=== PATIENT | female | born 1995 | race African-American/Black ===

== ENCOUNTER 2021-12-29 08:55 | Outpatient (CLI) | payer OTHER, SELFPAY ==
[2021-12-29 09:24] VITALS: TEMP 36.8
[2021-12-29 09:25] VITALS: BP 114/58; PULSE 83
[2021-12-29 10:15] VITALS: BMI 36.2
--- NOTE | 2021-12-29 11:38 | OB.TRI.NOTE ---
HPI - General General Date of Admission: 12/29/21 Date of Service: 12/29/21 Chief Complaint: DFM HPI Narrative ELÍAS VILLAFUERTE, is a 26 F who presents with DFM. No ctx, vb, lof. She offers no other complaints today. PFSH PFSH Home Medications aspirin 81 mg chewable tablet 81 mg PO DAILY pregnNCY 12/29/21 [History Last Taken 12/29/21 06:00] Allergy/AdvReac Type Severity Reaction Status Date / Time Penicillins Allergy Rash Verified 12/29/21 10:13 NST FHR Rate Baby A Baseline: 150 Variability:: Moderate Accelerations:: 15 x 15 Decelerations:: None NST Reactive:: Yes Assessment & Plan (1) 33 weeks gestation of : PLAN: NST reactive today She is now feeling FM Counseled regarding FKC's and reasons to call or return to L&D for evaluation Has follow up in the office in a few days
== END 2021-12-29 10:45 | disposition home or self-care (01) ==
LOC: WPOUT 09:14 → WP 09:15
PROVIDERS: Visit Provider Obstetrics & Gynecology
DX: O36.8130 Decreased fetal movements, third trimester, not applicable or unspecified (principal); Z79.82 Long term (current) use of aspirin; Z3A.33 33 weeks gestation of pregnancy
CPT/HCPCS: 59025; 59050; 99218; G0378

== ENCOUNTER 2022-02-06 17:35 | Outpatient (CLI) | payer OTHER, SELFPAY ==
[2022-02-06] VITALS (9 sets, daily range): BP systolic 111–124; BP diastolic 66–84; PULSE 60–79; TEMP 36.9; BMI 38.5
[2022-02-06 18:30] LABS: Hematocrit 38.1 % (37-47); Hemoglobin 12.2 g/dL (12.0-15.0); Mean Corpuscular Hgb 26.2 pg (27.0-32.0); Mean Corpuscular Volume 81.8 fL (81-99); Mean Platelet Vol. 11.4 fl (6.2-12.0); Platelet Count 150 K/mm3 (150-450); RBC Distribution Width CV 16.4 % (11.6-14.6); RBC Distribution Width SD 48.4 fl (35.1-43.9); Red Blood Count 4.66 M/mm3 (4.2-5.4); White Blood Count 7.1 K/mm3 (4.4-11.0)
[2022-02-06 18:36] LABS: Protein, Urine (Random) < 6.0 mg/dL (<11.9); Protein:Creat Ratio 211 mg/g CRE (0-200)
[2022-02-06 19:35] LABS: AST(SGOT) 17 U/L (15-37); Alanine Aminotransfer ALT/SGPT 18 U/L (13-56); Creatinine, Serum 0.59 mg/dL (0.55-1.02); EST Glomerular Filtration Rate 132 mL/min (>60); Est Glom Filt Rate - Afr Amer 160 mL/min (>60); Uric Acid 4.5 mg/dL (2.6-6.0)
--- NOTE | 2022-02-07 07:46 | OB.TRI.NOTE ---
HPI - General General Date of Admission: 02/06/22 Date of Service: 02/06/22 HPI Narrative ELÍAS VILLAFUERTE, is a 26 F who presents r/o PRE E PFSH PFSH Home Medications aspirin 81 mg chewable tablet 81 mg PO DAILY pregnNCY 12/29/21 [History Last Taken 12/29/21 06:00] vitamins no.144-folic acid 400 mcg chewable tablet () tab PO 02/06/22 [History Last Taken Unknown] Allergy/AdvReac Type Severity Reaction Status Date / Time Penicillins Allergy Rash Verified 02/06/22 19:41 NST FHR Rate Baby A Baseline: 150 Variability:: Moderate Accelerations:: 15 x 15 Decelerations:: None NST Reactive:: Yes FHR Category:: Category I Uterine Activity:: irregular Assessment & Plan (1) Headache in : PLAN: Plan @ 39.1 weeks- r/o PRE E, well being established 1) PRE E labs wnl 2) BPs normal 3) NST reactive cat 1- dc home
== END 2022-02-06 20:03 | disposition home or self-care (01) ==
LOC: WPOUT 17:40 → WP 17:41
PROVIDERS: Referring Provider Obstetrics & Gynecology; Visit Provider Obstetrics & Gynecology
DX: O26.893 Other specified pregnancy related conditions, third trimester (principal); R51.9 Headache, unspecified; Z3A.39 39 weeks gestation of pregnancy; Z79.82 Long term (current) use of aspirin
CPT/HCPCS: 59025; 59050; 82565; 82570; 84156; 84450; 84460; 84550; 85027; 99218; G0378

== ENCOUNTER 2022-02-11 07:30 | Outpatient (CLI) | payer OTHER, SELFPAY ==
[2022-02-11 07:48] VITALS: BP 131/87; PULSE 89; TEMP 36.5; O2SAT 98
[2022-02-11 07:51] VITALS: BMI 38.4
[2022-02-11 08:38] LABS: ROM Internal Control Test YES-OK TO RESULT pt. (Internal QC); ROM Patient Test Negative (Negative)
--- NOTE | 2022-02-26 06:51 | OB.TRI.HP_ITS ---
HPI - General HPI Narrative ELÍAS VILLAFUERTE, is a 26 F who presents to rule out labor. C/O contractions. Denies any loss of fluid or vaginal bleeding. Positive movement Maternal Data Information ASHA Calculator Estimated Delivery Date Method Current WG Current Estimate 02/12/22 Manual 42w 0d PFSH PFSH Medical History (Updated 02/26/22 @ 06:57 by Ruchi Negron CNM) Laceration, obstetrical, second degree No leakage of amniotic fluid into vagina Home Medications vitamins no.144-folic acid 400 mcg chewable tablet () 1 tab PO DAILY 02/06/22 [History Last Taken 02/13/22] ibuprofen 600 mg tablet 600 mg PO Q6H PRN Pain 20 days #60 TABLETS 02/15/22 [Rx Last Taken Unknown] Allergy/AdvReac Type Severity Reaction Status Date / Time Penicillins Allergy Rash Verified 02/13/22 00:06 Surgical History History of tonsillectomy [place] teeth extracted Social History Smoking Status: Never smoker History Elective abortions Hx Para 0 Spontaneous abortions Hx # Term Pregnancies Ectopic pregnancies Hx # Pregnancies Multiple births # of living children ROS Eyes Eyes: Denies blurry vision Cardiovascular Cardiovascular: Reports none; Denies chest pain at rest, chest pain with activity or dizziness Respiratory/Chest Respiratory/Chest: Denies cough or dyspnea Gastrointestinal Gastrointestinal: Reports none and other; Denies diarrhea or vomiting Genitourinary Genitourinary: Denies dysuria Musculoskeletal Musculoskeletal: Reports none Integumentary Integumentary: Reports none; Denies rash Neurologic Neurologic: Denies dizziness, headache(s) or other visual disturbances Psychiatric Psychiatric: Reports none Assessment & Plan (1) 39 weeks gestation of : (2) Uterine contractions: PLAN: Plan CE- no change Cat. 1 tracing, NST reactive D/C home with follow up in office
--- NOTE | 2022-03-05 07:38 | OB.TRI.PN ---
Progress Notes Progress Note: at 39w6d with complaints of leakage of fluid. No vaginal bleeding and good movement. No contractions. NST reactive Laboratory Studies: Laboratory Tests 02/11/22 Range/Units 08:03 Vag Amniotic Fld Detect Negative (Negative) Assessment & Plan (1) Vaginal discharge: PLAN: Plan 1) Reactive NST 2) ROM plus negative 3) No signs of labor, D/C home 4) Labor precautions reviewed
== END 2022-02-11 10:20 | disposition home or self-care (01) ==
LOC: WPOUT 07:33 → WP 07:34
PROVIDERS: Referring Provider Advanced Practice Midwife; Visit Provider Advanced Practice Midwife
DX: O26.893 Other specified pregnancy related conditions, third trimester (principal); N89.8 Other specified noninflammatory disorders of vagina; Z3A.39 39 weeks gestation of pregnancy
CPT/HCPCS: 59025; 59050; 84112; 99218; G0378

== ENCOUNTER 2022-02-13 00:29 | Inpatient (IN) | payer OTHER, SELFPAY ==
[2022-02-12 23:44] VITALS: BP 139/82; PULSE 80
[2022-02-12 23:58] VITALS: BMI 38.7
[2022-02-13] VITALS (99 sets, daily range): BP systolic 108–152; BP diastolic 57–95; PULSE 8–171; TEMP 35.9–38.3; O2SAT 78–100
[2022-02-13 05:11] LABS: Absolute Lymphocyte Count 0.86 X10^3/uL (0.83-4.51); Absolute Neutrophil Count 11.1 X10^3/uL (2.0-7.7); Basophil# 0.02 X10^3/uL; Basophil% 0.2 % (0-1); Hematocrit 40.8 % (37-47); Hemoglobin 12.9 g/dL (12.0-15.0); Lymphocyte # 0.86 X10^3/ul (0.83-4.51); Mean Corp Hgb Conc 31.6 g/dL (32-36); Mean Corpuscular Hgb 26.3 pg (27.0-32.0); Mean Corpuscular Volume 83.3 fL (81-99); Mean Platelet Vol. 11.8 fl (6.2-12.0); Monocyte# 0.32 X10^3/uL; Monocyte% 2.6 % (0-10); NRBC Flagged by Analyzer 0 % (0-5); Neutrophil % 89.6 % (47-70); Platelet Count 139 K/mm3 (150-450); RBC Distribution Width CV 16.6 % (11.6-14.6); RBC Distribution Width SD 49.8 fl (35.1-43.9); White Blood Count 12.4 K/mm3 (4.4-11.0)
[2022-02-13] MEDS: Cefazolin 2 GM in 0.9% Normal Saline 100 ML IV (05:23)
[2022-02-13] MEDS: LACTATED RINGERS 500 ML 999 ML IV ×2 (05:26→16:34)
[2022-02-13] MEDS: Lactated Ringers 1,000 ML 200 ML IV ×3 (06:25→16:51)
[2022-02-13] MEDS: fentaNYL-bupivacaine (epidural) 100 ML BAG EPIDURAL ×3 (07:15→16:03)
--- NOTE | 2022-02-13 08:01 | PCM.HP.OB ---
HPI - General General Date of Admission: 02/13/22 Date of Service: 02/13/22 Chief Complaint: labor HPI Narrative ELÍAS VILLAFUERTE, is a 26 F at 40w1d who presents in labor. Ctx's and 3 cm dilated. No vb, lof. Good FM. Maternal Data Information Final ASHA: 02/12/22 Final ASHA Source: LMP PFSH PFSH Home Medications aspirin 81 mg chewable tablet 81 mg PO DAILY pregnNCY 12/29/21 [History Last Taken 02/10/22 07:00] vitamins no.144-folic acid 400 mcg chewable tablet () 1 tab PO DAILY 02/06/22 [History Last Taken 02/13/22] Allergy/AdvReac Type Severity Reaction Status Date / Time Penicillins Allergy Rash Verified 02/13/22 00:06 Surgical History History of tonsillectomy [place] teeth extracted Social History Smoking Status: Never smoker History Elective abortions Hx Para 0 Spontaneous abortions Hx # Term Pregnancies Ectopic pregnancies Hx # Pregnancies Multiple births # of living children NST FHR Rate Baby A FHR Category:: Category I Vital Signs Vital Signs Vital Signs: 02/12/22 23:44 02/12/22 23:44 02/13/22 00:04 Temperature Temperature Source Pulse Rate 80 Blood Pressure 139/82 H 127/68 H BP Systolic 139 127 BP Diastolic 82 68 Pulse Ox 02/13/22 00:04 02/13/22 00:20 02/13/22 00:20 Temperature Temperature Source Pulse Rate 69 66 Blood Pressure 128/76 H BP Systolic 128 BP Diastolic 76 Pulse Ox 02/13/22 04:08 02/13/22 04:08 02/13/22 04:12 Temperature Temperature Source Pulse Rate 90 Blood Pressure 131/83 H BP Systolic 131 BP Diastolic 83 Pulse Ox 98 02/13/22 04:12 02/13/22 04:10 02/13/22 04:10 Temperature Temperature Source Temporal Pulse Rate 87 Blood Pressure 131/83 H BP Systolic 131 BP Diastolic 83 Pulse Ox 02/13/22 04:10 02/13/22 04:10 02/13/22 06:10 Temperature 96.6 F L Temperature Source Pulse Rate 98 Blood Pressure BP Systolic BP Diastolic Pulse Ox 98 02/13/22 06:10 02/13/22 06:15 02/13/22 06:15 Temperature Temperature Source Pulse Rate 85 Blood Pressure BP Systolic BP Diastolic Pulse Ox 99 99 02/13/22 06:20 02/13/22 06:20 02/13/22 06:26 Temperature Temperature Source Pulse Rate 104 H 92 Blood Pressure BP Systolic BP Diastolic Pulse Ox 99 02/13/22 06:26 02/13/22 06:28 02/13/22 06:28 Temperature Temperature Source Pulse Rate 98 Blood Pressure 143/95 H BP Systolic 143 BP Diastolic 95 Pulse Ox 93 02/13/22 06:30 02/13/22 06:30 02/13/22 06:33 Temperature Temperature Source Pulse Rate 92 Blood Pressure 130/74 H BP Systolic 130 BP Diastolic 74 Pulse Ox 99 02/13/22 06:33 02/13/22 06:35 02/13/22 06:35 Temperature Temperature Source Pulse Rate 94 76 Blood Pressure BP Systolic BP Diastolic Pulse Ox 99 02/13/22 06:38 02/13/22 06:38 02/13/22 06:40 Temperature Temperature Source Pulse Rate 96 89 Blood Pressure 143/79 H BP Systolic 143 BP Diastolic 79 Pulse Ox 02/13/22 06:40 02/13/22 06:44 02/13/22 06:44 Temperature Temperature Source Pulse Rate 67 Blood Pressure 123/60 H BP Systolic 123 BP Diastolic 60 Pulse Ox 98 02/13/22 06:45 02/13/22 06:45 02/13/22 06:49 Temperature Temperature Source Pulse Rate 89 Blood Pressure 123/61 H BP Systolic 123 BP Diastolic 61 Pulse Ox 100 02/13/22 06:49 02/13/22 06:50 02/13/22 06:50 Temperature Temperature Source Pulse Rate 83 99 Blood Pressure BP Systolic BP Diastolic Pulse Ox 100 02/13/22 06:54 02/13/22 06:54 02/13/22 06:55 Temperature Temperature Source Pulse Rate 87 89 Blood Pressure 126/72 H BP Systolic 126 BP Diastolic 72 Pulse Ox 02/13/22 06:55 02/13/22 06:58 02/13/22 06:58 Temperature Temperature Source Pulse Rate 122 H Blood Pressure 117/59 L BP Systolic 117 BP Diastolic 59 Pulse Ox 100 02/13/22 07:00 02/13/22 07:00 02/13/22 07:04 Temperature Temperature Source Pulse Rate 99 Blood Pressure 131/71 H BP Systolic 131 BP Diastolic 71 Pulse Ox 100 02/13/22 07:04 02/13/22 07:05 02/13/22 07:05 Temperature Temperature Source Pulse Rate 95 84 Blood Pressure BP Systolic BP Diastolic Pulse Ox 100 02/13/22 07:08 02/13/22 07:08 02/13/22 07:10 Temperature Temperature Source Pulse Rate 77 84 Blood Pressure 130/68 H BP Systolic 130 BP Diastolic 68 Pulse Ox 02/13/22 07:10 02/13/22 07:13 02/13/22 07:13 Temperature Temperature Source Pulse Rate 70 Blood Pressure 129/71 H BP Systolic 129 BP Diastolic 71 Pulse Ox 100 02/13/22 07:15 02/13/22 07:15 02/13/22 07:17 Temperature Temperature Source Pulse Rate 79 Blood Pressure 128/65 H BP Systolic 128 BP Diastolic 65 Pulse Ox 100 02/13/22 07:17 02/13/22 07:20 02/13/22 07:20 Temperature Temperature Source Pulse Rate 66 89 Blood Pressure BP Systolic BP Diastolic Pulse Ox 100 02/13/22 07:26 02/13/22 07:26 02/13/22 07:22 Temperature Temperature Source Temporal Pulse Rate 85 Blood Pressure BP Systolic BP Diastolic Pulse Ox 100 02/13/22 07:22 02/13/22 07:31 02/13/22 07:31 Temperature 97.7 F L Temperature Source Pulse Rate 68 Blood Pressure BP Systolic BP Diastolic Pulse Ox 100 02/13/22 07:36 02/13/22 07:36 02/13/22 07:40 Temperature Temperature Source Pulse Rate 78 Blood Pressure 108/63 BP Systolic 108 BP Diastolic 63 Pulse Ox 99 02/13/22 07:40 02/13/22 07:41 02/13/22 07:41 Temperature Temperature Source Pulse Rate 67 69 Blood Pressure BP Systolic BP Diastolic Pulse Ox 99 02/13/22 07:46 02/13/22 07:46 02/13/22 07:51 Temperature Temperature Source Pulse Rate 73 73 Blood Pressure BP Systolic BP Diastolic Pulse Ox 99 02/13/22 07:51 02/13/22 07:56 02/13/22 07:56 Temperature Temperature Source Pulse Rate 71 Blood Pressure BP Systolic BP Diastolic Pulse Ox 99 98 02/13/22 08:00 02/13/22 08:00 Temperature Temperature Source Pulse Rate 75 Blood Pressure 109/59 L BP Systolic 109 BP Diastolic 59 Pulse Ox Weight Weight: 233 lb Body Mass Index (BMI) 38.7 Physical Exam Const alert and no apparent distress General Appearance: comfortable Labs Labs Labs: Blood Type A POSITIVE Antibody Screen NEGATIVE Hct 40.8 % (37-47) Hgb 12.9 g/dL (12.0-15.0) Assessment & Plan (1) 40 weeks gestation of : PLAN: Admitted for labor by Dr. Paulie Rodriguez overnight. Epidural for pain control. Ancef for GBS positive. Had growth US last week - expected EFW < 4500 g and pelvis adequate. Cvx 4/90/-2, head well applied and AROM performed for moderate amount of light meconium stained fluid. Routine intrapartum care. Anticipate vaginal delivery. (2) Obesity affecting : (3) Positive GBS test:
[2022-02-13] MEDS: Oxytocin 30 units/NS 500 ml 30 UNITS/500 ML IV.SOLN IV (10:50)
[2022-02-13] MEDS: Cefazolin 1 GM/50 ML BAG IV (13:58)
[2022-02-13] MEDS: Mag Hydrox/Al Hydrox/Simeth 30 ML UDC PO (15:16)
[2022-02-13] MEDS: Ondansetron 4 MG/2 ML Vial IV (15:16)
--- NOTE | 2022-02-13 18:03 | PCM.PN.BLA ---
Progress Note At bedside to check on pt. Category 2 tracing. On pit 2 mu/min. Cvx now 9.5 cm. Comfortable with epidural but having some head and neck discomfort. Anticipate vaginal delivery.
[2022-02-13] MEDS: Oxytocin 30 units/NS 500 ml 30 UNITS/500 ML IV.SOLN 334 UNITS IV (19:38)
--- NOTE | 2022-02-13 19:39 | PLAC_PTH ---
PATIENT: ELÍAS VILLAFUERTE LOC: [facility] U#:[id number] AGE/SX: 26/F ROOM: WP006 RE02/13/[address]: Dr. Beth Jaime DO : 1995 BED: 1 DIS: 02/15/2022 SPEC #: [id number] RECD: 02/13/22 21:41 STATUS: DAWN ESTHER #: [id number] ALISSA: 02/13/22 19:[address]: Beth Jaime DEPT: SURGICAL PATHOLOGY RECD BY: Ana Paula Avendaño ENTERED: 02/14/22 08:23 SP TYPE: PLACENTA OTHR DR: No Primary Care Phys Tissues: Placenta, NOS Procedures: Surgery Specimen Level V HEADER OPERATION: Vaginal delivery PRE-OP DIAGNOSIS: Labor TISSUE SUBMITTED: Placenta MICROSCOPIC DIAGNOSIS Placenta: Placental disc - third trimester placenta (644 gm). - Focal area of infarction (2.7 cm in greatest dimension). - Focal acute vasculitis of subamniotic blood vessels. Membranes ? acute chorioamnionitis. Umbilical cord - three blood vessels and minimal acute funisitis. SJ:lucinda 02/15/2022 MICROSCOPIC DESCRIPTION Slides are reviewed. GROSS DESCRIPTION SPECIMEN: PLACENTA / CLINICAL INFORMATION: A. Weight: 3.855 kg B. Gestational Age: 40 weeks C. Sex: Male PLACENTAL WEIGHT (POST FIXATION): 644 gm PLACENTAL DIMENSIONS: 18 x 17.5 x 3 cm PLACENTAL SHAPE: Usual ovoid PLACENTAL WEIGHT FOR GESTATIONAL AGE: Over 99th percentile MEMBRANES - Present A. Insertion: Marginal B. Site of rupture from edge: At edge of placental disc C. Color of membrane: Bowman-cerda D. Abnormalities: None UMBILICAL CORD - Present A. Color: Bowman-cerda B. Insertion: Eccentric C. Length: 45 cm D. Diameter: 1.3 cm E. Number of vessels: Three F. Abnormalities: None PLACENTAL DISC - Present A. Color of surface: Bowman-cerda B. surface abnormalities: None C. Maternal cotyledons: Intact with minimal tears D. Attached retro placental clot: No clot E. Cut surface: Dark red and spongy F. Lesions: Serial sections reveal a firm, bowman-white lesion at the periphery measuring 2.7 x 1 x 1 cm. G. Separate clot: Absent SECTIONS SUBMITTED: 1. Umbilical cord ( end notched) 2. Umbilical cord, placental end 3. Membrane roll 4. Placental disc, and maternal surfaces, lesion 5. Placental disc, and maternal surfaces 6. Placental disc, and maternal surfaces AM:lucinda 02/14/2022 TC:2 CPT: 35715
--- NOTE | 2022-02-13 20:51 | PCM.OPRPT ---
Problems Associated Problem List Diagnoses (1) 40 weeks gestation of : (2) Obesity affecting : (3) Positive GBS test: Report of Operation Date of Procedure: 02/13/22 Pre-Operative Diagnosis: 40 week gestation, labor, GBS positive, obesity in Post-Operative Diagnosis: As above Surgery/Procedure Performed:: 2nd degree perineal laceration repair Left vaginal sulcus laceration repair Description of Surgical Findings:: VFI with head delivered in YENNY position. Meconium stained fluid. Normal appearing placenta with 3 VC. Surgeon: Beth Jaime Type of Anesthesia: Epidural Special Medications: None Specimen's removed: Placenta Drains: Huynh Estimated Blood Loss (mL): 400 Fluids Replaced: N/A Description of Procedure: Patient was complete and pushing for about under an hour. The head of the infant was delivered in right occiput anterior position. The anterior shoulder was delivered spontaneously without traction, followed by the posterior shoulder and body of the infant. A viable male infant was delivered without any force or delay and delivered atraumatically. The was placed on the maternal abdomen. The cord was clamped and cut by the father of baby after a 60 sec delay. Cord gases were obtained and sent. Placenta was delivered spontaneously. The placenta was noted to be warm to touch. The uterus was explored x1. The fundus was firm and bleeding hemostatic. Mother felt warm to touch. An oral temperature was checked and patient was noted to be afebrile. The placenta was sent for cultures. A second-degree perineal laceration was repaired with 3-0 Vicryl. A left vaginal sulcal tear was repaired with 3-0 Vicryl. After repair the lacerations were noted to be continuously oozing. Discussed vaginal packing with patient, and Kerlix soaked in saline was placed in the vagina for vaginal packing. The Huynh was left in place. Sponge and needle counts were correct. Grafts/Implants Used: None Complications None Admit VTE Documentation VTE Present on Admission: No
[2022-02-13] MEDS: Ibuprofen 600 MG Tablet PO (21:23)
[2022-02-13 21:41] LABS: Pathology Specimen OB SEE PATHOLOGY REPORT
[2022-02-13] MEDS: 0.9% Saline Lock 10 ML Syringe IV (22:34)
[2022-02-14] VITALS (8 sets, daily range): BP systolic 105–118; BP diastolic 57–84; PULSE 66–101; RESP 14–16; TEMP 36.1–37.1
[2022-02-14] MEDS: Acetaminophen 500 MG Tablet 1000 MG PO ×3 (01:51→15:50)
[2022-02-14] MEDS: Ibuprofen 600 MG Tablet PO ×3 (03:41→21:06)
--- NOTE | 2022-02-14 08:03 | OB.TRI.NOTE ---
HPI - General General Date of Service: 02/11/22 Chief Complaint: leaking fluid HPI Narrative ELÍAS VILLAFUERTE, is a 26 F who presents for leaking of fluid. She woke up and felt a gush of fluid. Denies any contractions or vaginal bleeding. Positive movement. Maternal Data Information ASHA Calculator Estimated Delivery Date Method Current WG Current Estimate 02/12/22 Manual 40w 2d PFSH PFSH Home Medications aspirin 81 mg chewable tablet 81 mg PO DAILY pregnNCY 12/29/21 [History Last Taken 02/10/22 07:00] vitamins no.144-folic acid 400 mcg chewable tablet () 1 tab PO DAILY 02/06/22 [History Last Taken 02/13/22] Allergy/AdvReac Type Severity Reaction Status Date / Time Penicillins Allergy Rash Verified 02/13/22 00:06 Surgical History History of tonsillectomy [place] teeth extracted Social History Smoking Status: Never smoker History Elective abortions Hx Para 0 Spontaneous abortions Hx # Term Pregnancies Ectopic pregnancies Hx # Pregnancies Multiple births # of living children ROS Eyes Eyes: Denies blurry vision Cardiovascular Cardiovascular: Reports none; Denies chest pain at rest, chest pain with activity or dizziness Respiratory/Chest Respiratory/Chest: Denies cough or dyspnea Gastrointestinal Gastrointestinal: Reports none and other; Denies diarrhea or vomiting Genitourinary Genitourinary: Denies dysuria Musculoskeletal Musculoskeletal: Reports none Integumentary Integumentary: Reports none; Denies rash Neurologic Neurologic: Denies dizziness, headache(s) or other visual disturbances Psychiatric Psychiatric: Reports none Physical Exam Const alert and no apparent distress General Appearance: cooperative Orientation / Consciousness: awake Exam Limitations: no limitations HEENT normocephalic Eyes General Eye: normal appearance of both eyes Neck full ROM Chest inspection of chest normal Resp normal respiratory effort and normal air movement Effort and Inspection: symmetric chest movement Auscultation: clear to auscultation bilaterally Cardio regular rate GI soft to palpation, non-tender and non-distended Inspection: and other Back/Spine normal ROM Extremity full ROM, normal capillary refill and no calf tenderness Skin no rashes or lesions noted Neuro oriented x3 and CN's II-XII intact bilaterally Psych mental status grossly normal NST FHR Rate Baby A Baseline: 130 Variability:: Moderate Accelerations:: 15 x 15 Decelerations:: None NST Reactive:: Yes FHR Category:: Category I Uterine Activity:: Irregular Assessment & Plan (1) 39 weeks gestation of : (2) No leakage of amniotic fluid into vagina: (3) Obesity affecting : PLAN: Plan NST reactive ROM plus - NEGATIVE D/C home with follow up in office
--- NOTE | 2022-02-14 08:32 | PCM.PN.OB ---
Subjective Subjective Patient seen at bedside. Feeling sore. Has not been out of bed to date. Taking Motrin and Tylenol PO for pain. Denies dizziness, headache, CP or SOB. with support. Vaginal packing to be removed. Objective Data Objective Data Vital Signs: Vital Signs Temp Pulse Resp BP Pulse Ox O2 Del Method 97.8 F 66 14 105/62 98 Room Air 02/14/22 03:30 02/14/22 03:30 02/14/22 03:30 02/14/22 03:30 02/13/22 22:28 02/14/22 03:30 Oxygen Delivery Method Room Air Weight: 233 lb Body Mass Index (BMI) 38.7 Intake & Output: Intake and Output for Last 24 Hours 02/12/22 02/13/22 02/14/22 23:59 23:59 23:59 Intake Total 4729.64 / 4729.64 Output Total 1500 / 1500 600 / 600 Balance 3229.64 / 3229.64 -600 / -600 Lab / Micro Data Result Diagrams: 02/13/22 04:55 Micro: Microbiology 02/13/22 04:58 Nasal Secretion SARS-CoV-2 Antigen (Rapid) - Final ROS Eyes Eyes: Denies blurry vision, change in vision or spots in vision ENT HEENT: Denies dizziness or headache(s) Cardiovascular Cardiovascular: Denies abdominal pain, chest pain or dyspnea Respiratory/Chest Respiratory/Chest: Denies cough, dyspnea, shortness of breath at rest or shortness of breath with exertion Gastrointestinal Gastrointestinal: Denies abdominal pain, diarrhea or vomiting Genitourinary Genitourinary: Denies change in urinary stream, difficulty urinating or dysuria Musculoskeletal Musculoskeletal: Reports none Integumentary Integumentary: Denies rash Neurologic Neurologic: Denies dizziness, headache(s), memory loss or weakness Physical Exam Const alert and no apparent distress General Appearance: cooperative and comfortable Exam Limitations: no limitations HEENT normocephalic Eyes General Eye: normal appearance of both eyes Neck full ROM General: normal visual inspection Chest Chest: symmetrical chest wall rise Resp normal respiratory effort and normal air movement Effort and Inspection: symmetric chest movement Auscultation: clear to auscultation bilaterally Cardio regular rate and regular rhythm GI normal to inspection, nondistended, normoactive bowel sounds Narrative: Vaginal packing removed without incident. No current active bleeding Back/Spine normal ROM Extremity full ROM and no calf tenderness General Extremity: normal exam except as noted Skin no rashes or lesions noted Neuro CN's II-XII intact bilaterally Psych mental status grossly normal Assessment & Plan (1) (spontaneous vaginal delivery): (2) Laceration, obstetrical, second degree: (3) Care and examination of lactating mother: PLAN: Plan PPD 1 Vaginal packing removed without difficulty No active bleeding Huynh Cath to be discontinued Patient to increase ambulation Ice and TUCKs to perineum Pain control support Anticipate discharge home tomorrow
[2022-02-14] MEDS: Senna/Docusate Sodium 1 Tablet PO (08:45)
[2022-02-15] MEDS: Acetaminophen 500 MG Tablet 1000 MG PO ×2 (00:34→08:26)
[2022-02-15 01:15] VITALS: BP 105/72; PULSE 67; RESP 16; TEMP 36.3
[2022-02-15] MEDS: Ibuprofen 600 MG Tablet PO ×2 (03:34→10:55)
--- NOTE | 2022-02-15 08:53 | PCM.PN.OB ---
Subjective Subjective Pain controlled. Has some vaginal pressure and soreness. Feels swollen. Average lochia. Ambulating and urinating without difficulty. Objective Data Objective Data Vital Signs: Vital Signs Temp Pulse Resp BP Pulse Ox O2 Del Method 97.3 F L 67 16 105/72 98 Room Air 02/15/22 01:15 02/15/22 01:15 02/15/22 01:15 02/15/22 01:15 02/13/22 22:02/14/22 03:30 Oxygen Delivery Method Room Air Weight: 105.687 kg Body Mass Index (BMI) 38.7 Intake & Output: Intake and Output for Last 24 Hours 02/13/22 02/14/22 02/15/22 23:59 23:59 23:59 Intake Total 4729.64 / 4729.64 Output Total 1500 / 1500 1300 / 1300 Balance 3229.64 / 3229.64 -1300 / -1300 Lab / Micro Data Result Diagrams: 02/13/22 04:55 Micro: Microbiology 02/13/22 04:58 Nasal Secretion SARS-CoV-2 Antigen (Rapid) - Final Physical Exam Const alert and no apparent distress Narrative: Fundus firm, below umbilicus. Assessment & Plan (1) (spontaneous vaginal delivery): PLAN: Plan Status post vaginal delivery. Doing well. is breast-feeding and doing well. Desires discharge home today.
--- NOTE | 2022-02-15 08:54 | PCM.DC.SUM ---
Providers Date of Admission: 02/13/22 Primary Care Physician: Nicolette Primary Care Phys Reason For Visit: VAG Diagnosis Discharge Diagnosis (1) (spontaneous vaginal delivery): Status: Acute Code(s): O80 - Encounter for full-term uncomplicated delivery Plan Status post vaginal delivery. Doing well. is breast-feeding and doing well. Desires discharge home today. Medications at Discharge Home Medications vitamins no.144-folic acid 400 mcg chewable tablet () 1 tab PO DAILY 02/06/22 ibuprofen 600 mg tablet 600 mg PO Q6H PRN Pain 20 days #60 TABLETS 02/15/22 Hospital Course Operations None Summary of Care Provided Hospital Course: 26-year-old nulliparous patient admitted on 02/13/2022 with spontaneous labor. She had a spontaneous vaginal delivery with a second-degree perineal laceration and a vaginal sulcus tear. By day #2 patient was ambulating, urinating tolerating regular diet without difficulty. is breast-feeding and doing well. Patient desired discharge home with routine instructions and follow-up. Weight / BMI Weight Weight: 105.687 kg Body Mass Index (BMI) 38.7 ABG / Lab / Microbiology Data Result Diagrams: 02/13/22 04:55 Microbiology: Microbiology 02/13/22 04:58 Nasal Secretion SARS-CoV-2 Antigen (Rapid) - Final D/C Instructions May resume sexual activity in: 6 weeks Please Follow Up With: Radha Gordon MD When: Follow up with our office in 1-2 and 6 weeks or as needed. [phone] Meaningful Use Info Meaningful Use Diagnoses (Choose all that apply): None applicable Discharge Plan Admission Admit Date/Time: 02/13/22 00:29 Primary Reason for Your Visit: Vaginal delivery Attending Provider: Beth Jaime Primary Care Provider: Care Physician,Nicolette Primary Discharge Orders/Prescriptions Prescriptions: New ibuprofen [ibuprofen] 600 MG tablet 600 mg PO Q6H PRN (Reason: Pain) 20 Days Qty: 60 1RF Continued 400 mcg Tablet,Chewable 1 tab PO DAILY Discontinued aspirin [Baby Aspirin] 81 mg Tablet,Chewable 81 mg PO DAILY Referrals / Follow Up: Care Physician,Nicolette Primary [Primary Care Provider] - Disposition Disposition (needs filled in before D/C Order can be placed): Home, Self Care
[2022-02-15 09:35] VITALS: BP 117/73; PULSE 91; RESP 16; TEMP 36.3
[2022-02-15] MEDS: Senna/Docusate Sodium 1 Tablet PO (10:56)
== END 2022-02-15 12:00 | disposition home or self-care (01) | DRG 807 ==
LOC: WPOUT 00:41 → WP 00:41
PROVIDERS: Obstetrics & Gynecology; Admitting Provider Obstetrics & Gynecology; Visit Provider Obstetrics & Gynecology
DX: O70.1 Second degree perineal laceration during delivery (principal); Z37.0 Single live birth; E66.9 Obesity, unspecified; O99.824 Streptococcus B carrier state complicating childbirth; Z3A.40 40 weeks gestation of pregnancy; O77.0 Labor and delivery complicated by meconium in amniotic fluid; O99.214 Obesity complicating childbirth
CPT/HCPCS: 59025; 59050; 85025; 86850; 86900; 86901; 87426; 88307; 99218; J7120; A4216; G0378; J2405

== ENCOUNTER 2023-08-10 20:35 | Inpatient (IN) | payer OTHER, BC, SELFPAY ==
[2023-08-10] VITALS (18 sets, daily range): BP systolic 121–227; BP diastolic 61–143; PULSE 51–123; RESP 18; O2SAT 93–100; BMI 37.3
[2023-08-10 20:53] LABS: Absolute Lymphocyte Count 1.86 X10^3/uL (0.83-4.51); Absolute Neutrophil Count 6.6 X10^3/uL (2.0-7.7); Basophil# 0.01 X10^3/uL; Basophil% 0.1 % (0-1); Eosinophil# 0.02 X10^3/uL; Eosinophils% 0.2 % (0-5); Hematocrit 39.6 % (37-47); Hemoglobin 12.1 g/dL (12.0-15.0); Lymphocyte # 1.86 X10^3/ul (0.83-4.51); Lymphocyte % 20.4 % (19-41); Mean Corp Hgb Conc 30.6 g/dL (32-36); Mean Corpuscular Hgb 23.3 pg (27.0-32.0); Mean Corpuscular Volume 76.3 fL (81-99); Mean Platelet Vol. 10.5 fl (6.2-12.0); Monocyte# 0.59 X10^3/uL; Monocyte% 6.5 % (0-10); NRBC Flagged by Analyzer 0 % (0-5); Neutrophil % 72.1 % (47-70); POSITIVE MORPHOLOGY YES; Platelet Count 177 K/mm3 (150-450); RBC Distribution Width CV 23.1 % (11.6-14.6); RBC Distribution Width SD 62.1 fl (35.1-43.9); Red Blood Count 5.19 M/mm3 (4.2-5.4); White Blood Count 9.1 K/mm3 (4.4-11.0)
[2023-08-10] MEDS: Lidocaine 1% (20 ml mdv) 20 ML Vial INFILT (21:00)
[2023-08-10] MEDS: Oxytocin 10 UNITS/ML Vial IM (21:13)
[2023-08-10] MEDS: Oxytocin 15 Units/NS 250ml 15 UNITS/250 ML IV.SOLN 83 UNITS IV (21:15)
--- NOTE | 2023-08-10 21:24 | HP.PCM.OB_ITS ---
HPI - General General Date of Admission: 08/10/23 HPI Narrative ELÍAS VILLAFUERTE, is a 28 F who presents with ASHA: 08/17/22 persentes in active labor. Maternal Data Information ASHA Calculator Estimated Delivery Date Method Current WG Current Estimate 08/18/23 Manual 38w 6d PFSH PFSH Medical History (Updated 08/10/23 @ 21:28 by Xi Pozo CNM) Laceration, obstetrical, second degree No leakage of amniotic fluid into vagina Home Medications vitamins no.144-folic acid 400 mcg chewable tablet () 1 tab PO DAILY 02/06/22 [History Last Taken 08/10/23] ibuprofen 600 mg tablet 600 mg PO Q6H PRN Pain 20 days #60 TABLETS 02/15/22 [Rx Last Taken Unknown] Allergy/AdvReac Type Severity Reaction Status Date / Time Penicillins Allergy Rash Verified 08/10/23 20:43 Surgical History History of tonsillectomy [place] teeth extracted Social History Smoking Status: Never smoker History Elective abortions Hx Para 0 Spontaneous abortions Hx # Term Pregnancies Ectopic pregnancies Hx # Pregnancies Multiple births # of living children Vital Signs Vital Signs Vital Signs: 08/10/23 20:28 08/10/23 20:28 08/10/23 20:48 Pulse Rate 100 116 H Blood Pressure BP Systolic BP Diastolic Pulse Ox 99 08/10/23 20:48 08/10/23 20:48 08/10/23 20:48 Pulse Rate 102 H Blood Pressure BP Systolic BP Diastolic Pulse Ox 93 96 08/10/23 20:53 08/10/23 20:53 08/10/23 20:58 Pulse Rate 123 H 112 H Blood Pressure BP Systolic BP Diastolic Pulse Ox 98 08/10/23 20:58 08/10/23 21:03 08/10/23 21:03 Pulse Rate 81 Blood Pressure 144/80 H BP Systolic 144 BP Diastolic 80 Pulse Ox 99 08/10/23 21:03 08/10/23 21:08 08/10/23 21:08 Pulse Rate 83 Blood Pressure BP Systolic BP Diastolic Pulse Ox 96 99 08/10/23 21:13 08/10/23 21:13 08/10/23 21:18 Pulse Rate 81 80 Blood Pressure BP Systolic BP Diastolic Pulse Ox 100 08/10/23 21:18 08/10/23 21:23 08/10/23 21:23 Pulse Rate 76 Blood Pressure 138/97 H BP Systolic 138 BP Diastolic 97 Pulse Ox 100 Weight Weight: 224 lb 3.2 oz Body Mass Index (BMI) 37.3 Physical Exam Manual OB Exam: estimated gestational size appropriate, presentation cephalic and other 8cm upon arrival. complete and with SROM shortly after arriving on unit. Labs Labs Labs: Blood Type A POSITIVE Antibody Screen NEGATIVE Hct 40.8 % (37-47) Hgb 12.9 g/dL (12.0-15.0) Syphilis Total Ab Non-reactive HepC negative HBsAG negative Rubella Immune HIV negative A positive GBS negative GC/CT negative Assessment & Plan (1) Active labor at term: (2) SROM (spontaneous rupture of membranes): (3) 38 weeks gestation of : (4) Anemia affecting : (5) Penicillin allergy: (6) Obesity affecting : (7) History of spontaneous : PLAN: Plan 1) Admit to labor and delivery 2) Routine labs 3) Requesting epidural, unlikely due to rapid labor 4) GBS negative 5) [facility] physician. Notified of patient status, above assessment and plan.
[2023-08-10 21:27] LABS: Syphilis Antibodies Non-reactive
--- NOTE | 2023-08-10 21:29 | EX.PCM.OBRPT ---
Assessment & Plan (1) Vaginal delivery: (2) First degree perineal laceration: Maternal Data Information ASHA Calculator Estimated Delivery Date Method Current WG Current Estimate 08/18/23 Manual 38w 6d Vaginal Delivery Maternal Presentation Maternal Presentation: Active Labor and Spontaneous Rupture of Membranes Operative Information Date of Procedure: 08/10/23 Pre-Operative Diagnosis: Active labor at term Post-Operative Diagnosis: , first degree perineal laceration Surgery / Procedure Performed: Spontaneous Vaginal Delivery Type of Anesthesia: Local with 1% Lidocaine Estimated Blood Loss: 200 ml Time of Delivery: 21:00 Findings Description of Procedure: Progressed to complete with urge to push. Unmedicated, on hands and knees. of viable female over first degree perineal laceration. APGARS 8,9 respectively. Infant head delivered with body immediately forthcoming. Turned supine and placed on maternal abdomen, strong cry. Mouth and nares suctioned for secretions. Pitocin started for active 3rd stage management. Cord doubly clamped and cut by FOB after pulsations ceased, delayed cord clamping. Placenta delivered intact via burrell, 3 vessel cord intact. Perineum inspected and revealed 1st degree perineal laceration. Repaired with 3.0 vicryl rapide and lidocaine. Fundus firm and hemostasis achieved. EBL 200ml Mom and baby stable, planning to breastfeed. Family bonding well. Dr. Gordon notified of delivery. Presentation: Vertex and AN Amniotic Membrane Rupture Type: Spontaneous Amniotic Fluid Description: Clear Placental Delivery Description: Spontaneous Placenta Disposition: [facility] Cord Vessel Description: 3 Vessels Cord Entanglement: None Infant A Gender: Female (1 minute): 9 (5 minute): 9 Delayed Cord Clamping: Yes Post Vaginal Delivery Medications Given After Delivery: IV Pitocin and IM Pitocin Episiotomy Description: None Laceration: Perineal Extension/lac and 1st degree Complication Complications: None
[2023-08-10 21:35] LABS: Differential Indicated SCAN CRITERIA MET
[2023-08-10 21:36] LABS: Anisocytosis 2+; Differential Comment SCANNED; Macrocytosis 1+; Microcytosis 1+
--- NOTE | 2023-08-10 23:41 | NURSING ---
Report received from Edie STRAUSS, taking over pt care at this time.
[2023-08-11] MEDS: Ibuprofen 600 MG Tablet PO ×2 (00:43→09:21)
[2023-08-11 03:50] VITALS: BP 139/75; PULSE 84; RESP 16; TEMP 36.3; O2SAT 97
[2023-08-11] MEDS: 0.9% Saline Lock 10 ML Syringe IV (04:26)
[2023-08-11] MEDS: Acetaminophen 500 MG Tablet 1000 MG PO ×2 (04:33→16:56)
[2023-08-11 04:44] LABS: Absolute Lymphocyte Count 1.93 X10^3/uL (0.83-4.51); Absolute Neutrophil Count 9.7 X10^3/uL (2.0-7.7); Basophil# 0.03 X10^3/uL; Basophil% 0.2 % (0-1); Eosinophil# 0.01 X10^3/uL; Eosinophils% 0.1 % (0-5); Hematocrit 40.4 % (37-47); Hemoglobin 12.3 g/dL (12.0-15.0); Lymphocyte # 1.93 X10^3/ul (0.83-4.51); Lymphocyte % 15.6 % (19-41); Mean Corp Hgb Conc 30.4 g/dL (32-36); Mean Corpuscular Hgb 23.2 pg (27.0-32.0); Mean Corpuscular Volume 76.1 fL (81-99); Monocyte# 0.71 X10^3/uL; Monocyte% 5.7 % (0-10); NRBC Flagged by Analyzer 0 % (0-5); Neutrophil # 9.67 X10^3/uL (2.7-7.7); Neutrophil % 77.9 % (47-70); POSITIVE MORPHOLOGY YES; Platelet Count 167 K/mm3 (150-450); RBC Distribution Width CV 23.4 % (11.6-14.6); Red Blood Count 5.31 M/mm3 (4.2-5.4); White Blood Count 12.4 K/mm3 (4.4-11.0)
[2023-08-11 04:59] LABS: Differential Indicated SCAN CRITERIA MET
[2023-08-11 05:48] LABS: Anisocytosis 3+
[2023-08-11 07:30] VITALS: BP 112/74; PULSE 50; RESP 16; TEMP 36.2; O2SAT 99
--- NOTE | 2023-08-11 08:41 | PCM.PN.OB ---
Subjective Subjective Pain well-controlled. Average lochia. No other complaints. Objective Data Objective Data Vital Signs: Vital Signs Temp Pulse Resp BP Pulse Ox O2 Del Method 97.1 F L 50 L 16 112/74 99 Room Air 08/11/23 07:30 08/11/23 07:30 08/11/23 07:30 08/11/23 07:30 08/11/23 07:30 08/11/23 07:30 Oxygen Delivery Method Room Air Weight: 101.695 kg Body Mass Index (BMI) 37.3 Intake & Output: Intake and Output for Last 24 Hours 08/09/23 08/10/23 08/11/23 23:59 23:59 23:59 Intake Total 250 / 250 Output Total 200 / 200 400 / 400 Balance -200 / -200 -150 / -150 Lab / Micro Data 08/11/23 04:30 Labs: Laboratory Results - last 24 hr 08/10/23 20:40: WBC 9.1, RBC 5.19, Hgb 12.1, Hct 39.6, MCV 76.3 L, MCH 23.3 L, MCHC 30.6 L, RDW Std Deviation 62.1 H, RDW Coeff of Tammi 23.1 H, Plt Count 177, MPV 10.5, Immature Gran % (Auto) 0.700, Neut % (Auto) 72.1 H, Lymph % (Auto) 20.4, [place] % (Auto) 6.5, Eos % (Auto) 0.2, Baso % (Auto) 0.1, Absolute Neuts (auto) 6.6, Absolute Lymphs (auto) 1.86, Nucleated RBC % 0, Differential Comment SCANNED, Anisocytosis 2+, Microcytosis 1+, Macrocytosis 1+, Syphilis Total Ab Non-reactive, Blood Type A POSITIVE, Antibody Screen NEGATIVE 08/11/23 04:30: WBC 12.4 H, RBC 5.31, Hgb 12.3, Hct 40.4, MCV 76.1 L, MCH 23.2 L, MCHC 30.4 L, RDW Std Deviation 61.0 H, RDW Coeff of Tammi 23.4 H, Plt Count 167, MPV 11.0, Immature Gran % (Auto) 0.500, Neut % (Auto) 77.9 H, Lymph % (Auto) 15.6 L, [place] % (Auto) 5.7, Eos % (Auto) 0.1, Baso % (Auto) 0.2, Absolute Neuts (auto) 9.7 H, Absolute Lymphs (auto) 1.93, Nucleated RBC % 0, Anisocytosis 3+ Physical Exam Const alert and no apparent distress Narrative: Fundus firm, below umbilicus. Assessment & Plan (1) Vaginal delivery: PLAN: day #1 status post vaginal delivery. Routine care. is breast-feeding and doing well.
[2023-08-11 12:00] VITALS: BP 114/79; PULSE 56; RESP 18; TEMP 36.3
[2023-08-11 16:58] VITALS: BP 118/70; PULSE 62; RESP 15; TEMP 36.5
[2023-08-11 21:39] VITALS: BP 108/71; PULSE 65; RESP 16; TEMP 36.2; O2SAT 97
[2023-08-12 03:05] VITALS: BP 108/80; PULSE 70; RESP 16; TEMP 36.2; O2SAT 97
--- NOTE | 2023-08-12 08:29 | PN.OBGYN_ITS ---
Subjective Subjective Doing well per patient and nursing staff. Ambulating and taking PO without difficulty. Voiding and passing flatus. Pain controlled. , services for assistance. Denies headache, visual changes, chest pain, shortness of breath, leg pain or increased bleeding. Lochia normal. Objective Data Objective Data Vital Signs: Vital Signs Temp Pulse Resp BP Pulse Ox O2 Del Method 97.1 F L 70 16 108/80 97 Room Air 08/12/23 03:05 08/12/23 03:05 08/12/23 03:05 08/12/23 03:05 08/12/23 03:05 08/12/23 03:05 Oxygen Delivery Method Room Air Weight: 224 lb 3.2 oz Body Mass Index (BMI) 37.3 Intake & Output: Intake and Output for Last 24 Hours 08/10/23 08/11/23 08/12/23 23:59 23:59 23:59 Intake Total 250 / 250 Output Total 200 / 200 400 / 400 Balance -200 / -200 -150 / -150 Lab / Micro Data 08/11/23 04:30 ROS Constitutional Constitutional: Reports systems reviewed and no addt'l complaints, except as documented; Denies headache(s) Eyes Eyes: Denies acute decrease in peripheral vision, blurry vision or change in vision ENT HEENT: Reports systems reviewed and no addt'l complaints, except as documented Cardiovascular Cardiovascular: Denies chest pain or dizziness Respiratory/Chest Respiratory/Chest: Denies cough, dyspnea, dyspnea on exertion, shortness of breath at rest or shortness of breath with exertion Gastrointestinal Gastrointestinal: Denies abdominal pain, diarrhea, nausea or vomiting Genitourinary Genitourinary: Denies abdominal discomfort Musculoskeletal Musculoskeletal: Denies limited range of motion Integumentary Integumentary: Reports systems reviewed and no addt'l complaints, except as documented Neurologic Neurologic: Reports systems reviewed and no addt'l complaints, except as documented Psychiatric Psychiatric: Reports systems reviewed and no addt'l complaints, except as documented Endocrine Endocrinology: Reports systems reviewed and no addt'l complaints, except as d ocumented Hematologic/Lymphatic Hematologic/Lymphatic: Reports systems reviewed and no addt'l complaints, except as documented Allergic/Immunologic Allergic/Immunologic: Reports systems reviewed and no addt'l complaints, except as documented Physical Exam Const alert and oriented x3 General Appearance: cooperative Orientation / Consciousness: awake, oriented to person, oriented to place and oriented to time Exam Limitations: no limitations HEENT normocephalic Head and Scalp: normal to inspection, normocephalic and atraumatic Face and Sinus: normal facial exam Eyes General Eye: normal appearance of both eyes Neck full ROM Chest Chest: symmetrical chest wall rise Resp normal respiratory effort and normal air movement Auscultation: clear to auscultation bilaterally Cardio regular rate, regular rhythm, S1 normal heart sound, S2 normal heart sound, no murmurs, no rub, no gallops and no clicks GI normal to inspection, nondistended, normoactive bowel sounds and non-tender appearance of the vagina normal Bladder / Kidney Exam: no CVA tenderness Back/Spine normal ROM Extremity normal to inspection and full ROM Skin no rashes or lesions noted Neuro oriented x3 and moves all extremities Sensorium / Orientation: awake, alert and oriented to person Motor Exam: clonus absent Deep Tendon Reflexes: Rt Patellar (L4): 2+ and Lt Patellar (L4): 2+ Assessment & Plan (1) First degree perineal laceration: (2) Vaginal delivery: PLAN: Plan 1) PPD #1 2) Vitals stable 3) without difficulty 4) Emotions stable 5) D/C home today 6) Follow up in 2 weeks and 6 weeks PP
--- NOTE | 2023-08-12 08:33 | DS.PCM_ITS ---
Providers Date of Admission: 08/10/23 Primary Care Physician: Nicolette Primary Care Phys Reason For Visit: VAGINAL DELIVERY Diagnosis Discharge Diagnosis (1) First degree perineal laceration: Status: Acute Code(s): O70.0 - First degree perineal laceration during delivery (2) Vaginal delivery: Status: Acute Code(s): O80 - Encounter for full-term uncomplicated delivery Plan 1) PPD #1 2) Vitals stable 3) without difficulty 4) Emotions stable 5) D/C home today 6) Follow up in 2 weeks and 6 weeks PP Medications at Discharge Home Medications vitamins no.144-folic acid 400 mcg chewable tablet () 1 tab PO DAILY 02/06/22 acetaminophen 500 mg tablet 1,000 mg (2 x 500 mg) PO Q6H PRN PRN Pain 1-10 Or Fever #0 tabs 08/12/23 ibuprofen 600 mg tablet 600 mg PO Q6H PRN PRN P #0 tabs 08/12/23 Weight / BMI Weight Weight: 224 lb 3.2 oz Body Mass Index (BMI) 37.3 ABG / Lab / Microbiology Data 08/11/23 04:30 D/C Instructions Discharge Diet: No restrictions Discharge Activity: Return to Normal Activity, May Drive, May Shower and May Take a Tub Bath May resume sexual activity in: 6 weeks Weight Bearing Status: Full weight bearing Lifting Restricted to (Lbs): 20 Call your doctor if you observe: Fever of 101 or Higher, Inability to urinate, Inability to have a bowel movement, Using more than 1 pad per hour, Shortness of breath, Dizziness, Fainting spells, Chest pain, Increased palpitations (irr egular heartbeat), Calf discomfort and Uncontrolled pain When: Follow up in 2 weeks and 6 weeks PP Meaningful Use Info Meaningful Use Diagnoses (Choose all that apply): None applicable Discharge Plan Admission Admit Date/Time: 08/10/23 20:35 Primary Reason for Your Visit: Vaginal Delivery Attending Provider: Xi Pozo Primary Care Provider: Care Physician,Nicolette Primary Discharge Orders/Prescriptions Prescriptions: New acetaminophen 500 mg Tablet 1,000 mg PO Q6H PRN PRN (Reason: Pain 1-10 Or Fever) Qty: 0 0RF ibuprofen 600 mg Tablet 600 mg PO Q6H PRN PRN (Reason: P) Qty: 0 0RF Continued 400 mcg Tablet,Chewable 1 tab PO DAILY Discontinued ibuprofen [ibuprofen] 600 MG tablet 600 mg PO Q6H PRN (Reason: Pain) 20 Days Qty: 60 1RF Hold Instructions: Referrals / Follow Up: Care Physician,No Primary [Primary Care Provider] - Disposition Disposition (needs filled in before D/C Order can be placed): Home, Self Care
[2023-08-12 09:07] VITALS: BP 141/89; PULSE 79; RESP 16; TEMP 36.1
== END 2023-08-12 10:30 | disposition home or self-care (01) | DRG 807 ==
LOC: WPOUT 20:36 → WP 20:36
PROVIDERS: Admitting Provider Advanced Practice Midwife; Visit Provider Advanced Practice Midwife
DX: O70.0 First degree perineal laceration during delivery (principal); Z37.0 Single live birth; O99.02 Anemia complicating childbirth; O99.214 Obesity complicating childbirth; Z3A.38 38 weeks gestation of pregnancy; Z87.59 Personal history of other complications of pregnancy, childbirth and the puerperium; Z88.0 Allergy status to penicillin
CPT/HCPCS: 59025; 59050; 85025; 86780; 86850; 86900; 86901; 99221; A4216; G0378

== ENCOUNTER 2025-03-21 23:23 | Inpatient (IN) | payer OTHER, BC, SELFPAY ==
[2025-03-21 23:05] VITALS: BMI 35.3
[2025-03-21 23:11] VITALS: BP 138/96; PULSE 133
[2025-03-21 23:12] VITALS: PULSE 128; TEMP 36.7; O2SAT 97
[2025-03-21 23:13] VITALS: RESP 16; TEMP 36.7
[2025-03-21] MEDS: Lactated Ringers 1,000 ML 200 ML IV (23:40)
[2025-03-21 23:45] LABS: Hematocrit 35.7 % (37-47); Hemoglobin 10.9 g/dL (12.0-15.0); Immature Granulocytes Count 0.030 X10^3/uL (0.0-0.0); Mean Corp Hgb Conc 30.5 g/dL (32-36); Mean Corpuscular Volume 71.0 fL (81-99); Mean Platelet Vol. 11.2 fl (6.2-12.0); NRBC Flagged by Analyzer 0 % (0-5); Platelet Count 185 K/mm3 (150-450); RBC Distribution Width CV 16.7 % (11.6-14.6); RBC Distribution Width SD 42.0 fl (35.1-43.9); Red Blood Count 5.03 M/mm3 (4.2-5.4); White Blood Count 6.8 K/mm3 (4.4-11.0)
[2025-03-22] VITALS (37 sets, daily range): BP systolic 101–218; BP diastolic 50–93; PULSE 49–200; RESP 16; TEMP 36.2–36.8; O2SAT 97–100
--- NOTE | 2025-03-22 00:15 | PCM.PN.BLA ---
Progress Note Patient in active labor. I was called to be available due to LGA, GDM. Patient declines C/s. I d/w her and partner at 1205 am recommendation was a delivery, she declines. Expectant management. Team aware.
[2025-03-22 00:22] LABS: Syphilis Antibodies Nonreactive (Nonreactive)
[2025-03-22] MEDS: Oxytocin 15 Units/NS 250ml 15 UNITS/250 ML IV.SOLN 334 UNITS IV (01:00)
--- NOTE | 2025-03-22 01:26 | PCM.HP.OB ---
HPI - General General Date of Admission: 03/21/25 HPI Narrative ELÍAS VILLAFUERTE, is a 29 F who presents [ at 38w3d with ASHA 04/02/25. Presented with contractions that started around 9:45pm. complicated by GDMA1 and suspected macrosomia. Scheduled for section on 03/25 but was declining and desires vaginal ] Maternal Data Information ASHA Calculator Estimated Delivery Date Method Current WG Current Estimate 04/02/25 Manual 38w 3d PFSH PFS Medical History (Updated 03/22/25 @ 01:33 by Xi Pozo CNM) Gestational diabetes Laceration, obstetrical, second degree No leakage of amniotic fluid into vagina Home Medications ?Medication ?Instructions ?Recorded ?Last Taken ?Type vitamins no.144-folic 1 tab PO DAILY 02/06/22 03/20/25 08:15 History acid 400 mcg chewable tablet 1 TAB () Allergy/AdvReac Type Severity Reaction Status Date / Time Penicillins Allergy Rash Verified 03/21/25 23:15 Surgical History [place] teeth extracted History of tonsillectomy Social History Smoking Status: Never smoker History Elective abortions Hx Para 2 Spontaneous abortions Hx # Term Pregnancies Ectopic pregnancies Hx # Pregnancies Multiple births # of living children NST FHR Rate Baby A Baseline: 155 Variability:: Moderate Accelerations:: 15 x 15 Decelerations:: None FHR Category:: Category I Uterine Activity:: Every 1-2 minutes ROS Constitutional Constitutional: Reports systems reviewed and no addt'l complaints, except as documented; Denies headache(s) Eyes Eyes: Denies acute decrease in peripheral vision, blurry vision or change in vision ENT HEENT: Reports systems reviewed and no addt'l complaints, except as documented Cardiovascular Cardiovascular: Denies chest pain or dizziness Respiratory/Chest Respiratory/Chest: Denies cough, dyspnea, dyspnea on exertion, shortness of breath at rest or shortness of breath with exertion Gastrointestinal Gastrointestinal: Denies abdominal pain, diarrhea, nausea or vomiting Genitourinary Genitourinary: Denies abdominal discomfort Musculoskeletal Musculoskeletal: Denies limited range of motion Integumentary Integumentary: Reports systems reviewed and no addt'l complaints, except as documented Neurologic Neurologic: Reports systems reviewed and no addt'l complaints, except as documented Psychiatric Psychiatric: Reports systems reviewed and no addt'l complaints, except as documented Endocrine Endocrinology: Reports systems reviewed and no addt'l complaints, except as documented Hematologic/Lymphatic Hematologic/Lymphatic: Reports systems reviewed and no addt'l complaints, except as documented Allergic/Immunologic Allergic/Immunologic: Reports systems reviewed and no addt'l complaints, except as documented Vital Signs Vital Signs Vital Signs: 03/21/25 23:11 03/21/25 23:11 03/21/25 23:12 Temperature 98.1 F Temperature Source Pulse Rate 133 H Respiratory Rate Blood Pressure 138/96 H BP Systolic 138 BP Diastolic 96 Pulse Ox 03/21/25 23:12 03/21/25 23:12 03/21/25 23:13 Temperature Temperature Source Temporal Pulse Rate 128 H Respiratory Rate Blood Pressure BP Systolic BP Diastolic Pulse Ox 97 03/21/25 23:13 03/21/25 23:13 Temperature 98.1 F Temperature Source Pulse Rate Respiratory Rate 16 Blood Pressure BP Systolic BP Diastolic Pulse Ox Weight Weight: 212 lb 3.2 oz Body Mass Index (BMI) 35.3 Physical Exam Const alert and oriented x3 General Appearance: cooperative Orientation / Consciousness: awake, oriented to person, oriented to place and oriented to time Exam Limitations: no limitations HEENT normocephalic Head and Scalp: normal to inspection, normocephalic and atraumatic Face and Sinus: normal facial exam Eyes General Eye: normal appearance of both eyes Neck full ROM Chest Chest: symmetrical chest wall rise Resp normal respiratory effort and normal air movement Auscultation: clear to auscultation bilaterally Cardio regular rate, regular rhythm, S1 normal heart sound, S2 normal heart sound, no murmurs, no rub, no gallops and no clicks GI normal to inspection, nondistended, normoactive bowel sounds and non-tender appearance of the vagina normal Bladder / Kidney Exam: no CVA tenderness Back/Spine normal ROM Extremity normal to inspection and full ROM Skin no rashes or lesions noted Neuro oriented x3 and moves all extremities Sensorium / Orientation: awake, alert and oriented to person Motor Exam: clonus absent Deep Tendon Reflexes: Rt Patellar (L4): 2+ and Lt Patellar (L4): 2+ Labs Labs Labs: Blood Type A POSITIVE Antibody Screen NEGATIVE Hct, (37-47) 35.7 % L Hgb, (12.0-15.0) 10.9 g/dL L Syphilis Total Ab, (Nonreactive) Nonreactive Rhogam given: No GBS negative Rubella immune A positive HIV negative HepC negative HBsAG negative GC/CT negative Assessment & Plan (1) Excessive growth: (2) GDM, class A1: (3) Short interval between pregnancies affecting , antepartum: PLAN: Plan 1) Admit to labor and delivery 2) Routine labs 3) Continuous EFM 4) Pain management upon request 5) Suspected macrosomia with 03/20 US at EFW 4500g. Recommend primary section due to weight. Reviewed risks of vaginal delivery for shoulder dystocia, labor dystocia, pelvic floor injury, hypoxia, or . Patient counseled in office and today on unit and desires to continue with vaginal delivery. called to be at hospital for delivery. 6) Dr. Gordon collaborative physician and notified of patient status, above assessment, and plan.
--- NOTE | 2025-03-22 01:37 | EX.PCM.OBVAG ---
Maternal Data Information ASHA Calculator Estimated Delivery Date Method Current WG Current Estimate 04/02/25 Manual 38w 3d Vaginal Delivery Maternal Presentation Maternal Presentation: Active Labor Vaginal Delivery Information Procedure Performed: Spontaneous Vaginal Delivery Surgeon/Practitioner: Xi Pozo Date of Procedure: 03/22/25 Pre-Procedure Diagnosis: Active labor Post-Procedure Diagnosis: , second degree perineal laceration Type of anesthesia: Local with 1% Lidocaine Estimated Blood Loss: 300ml Time of Delivery: 00:50 Findings Description of procedure: Progressed to complete with urge to push. Unmedicated. of viable male over 2nd degree perineal laceration . APGARS 9,9 respectively. Infant head delivered with body immediately forthcoming. Placed on maternal abdomen, strong cry. Mouth and nares suctioned for secretions. Pitocin started for active 3rd stage management. Cord doubly clamped and cut by FOB after pulsations ceased, delayed cord clamping. Placenta delivered intact via burrell, 3 vessel cord intact. Perineum inspected and revealed second degree perineal laceration. Repaired with 3.0 vicryl rapide and lidocaine. Fundus firm and hemostasis achieved. EBL 300ml. Vaginal sweep completed by me, sponge and instrument correct. Mom and baby stable, planning to breastfeed. Family bonding well. present for delivery. 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
[2025-03-22] MEDS: Oxytocin 15 Units/NS 250ml 15 UNITS/250 ML IV.SOLN 83 UNITS IV (01:50)
[2025-03-23 00:30] VITALS: BP 99/61; PULSE 54; PULSE 57; RESP 16; O2SAT 98
--- NOTE | 2025-03-23 08:35 | PCM.DC.SUM ---
Providers Date of Admission: 03/21/25 Primary Care Physician: No Primary Care Phys Reason For Visit: LABOR Diagnosis Discharge Diagnosis (1) Excessive growth: Status: Acute (2) GDM, class A1: Status: Acute Code(s): O24.410 - Gestational diabetes mellitus in , diet controlled (3) Short interval between pregnancies affecting , antepartum: Status: Acute Code(s): O09.899 - Supervision of other high risk pregnancies, unspecified trimester Medications at Discharge Home Medications vitamins no.144-folic acid 400 mcg chewable tablet () 1 tab PO DAILY 02/06/22 acetaminophen 500 mg tablet 1,000 mg (2 x 500 mg) PO Q6H PRN PRN Pain 1-10 Or Fever #0 tabs 03/23/25 ibuprofen 600 mg tablet 600 mg PO Q6H PRN PRN Pain Score 1-10 #0 tabs 03/23/25 Hospital Course Operations None Procedures None Summary of Care Provided Minutes Spent on Discharge: 15 Hospital Course: Patient had vaginal delivery. Hospital course was uneventful. Physical Exam Narrative Patient seen at bedside. Denies pain. Ambulating and voiding without difficulty. Lochia decreased. Desires discharge home today. Const alert and oriented x3 General Appearance: Negative for in distress HEENT normocephalic Eyes General Eye: normal appearance of both eyes Neck General: normal visual inspection Chest Chest: symmetrical chest wall rise Resp normal respiratory effort and normal air movement Effort and Inspection: symmetric chest movement; Negative for tachypneic Auscultation: clear to auscultation bilaterally Cardio regular rate and regular rhythm Peripheral Pulses: pulses 2+ throughout GI normal to inspection, nondistended, normoactive bowel sounds Narrative: Ice to perineum OB / External & Speculum: vaginal bleeding and other Lochia decreasing Uterus Palpation: uterus fundus firm (Below U) Extremity normal to inspection, full ROM and normal capillary refill Skin no rashes or lesions noted Neuro oriented x3, CN's II-XII intact bilaterally and gait normal Psych mental status grossly normal, thought process normal and activity/motor behavior normal Weight / BMI Weight Weight: 212 lb 3.2 oz Body Mass Index (BMI) 35.3 ABG / Lab / Microbiology Data 03/21/25 23:30 Laboratory: Laboratory Results - last 24 hr 03/23/25 03:49: POC Glucose 95 D/C Instructions Discharge Activity: Return to Normal Activity, No Restrictions, May Drive, May Shower and May Take a Tub Bath (Warm water only. No bath salts, soaps, bubbles) May resume sexual activity in: 6-8 weeks Weight Bearing Status: Weight bearing as tolerated Call your doctor if you observe: Fever of 101 or Higher, Inability to urinate, Using more than 1 pad per hour, Shortness of breath, Dizziness, Chest pain, Calf discomfort and Uncontrolled pain DC O2, CPAP, BIPAP Needs Home O2 Discharge instructions: No Please Follow Up With: [facility] Alexis LOZANO When: 2 weeks in office or virtual Meaningful Use Info Meaningful Use Meaningful Use Diagnoses (Choose all that apply): None applicable Discharge Plan Admission Admit Date/Time: 03/21/25 23:23 Primary Reason for Your Visit: Labor and Delivery Attending Provider: Xi Pozo Primary Care Provider: Care Physician,Nicolette Primary Discharge Orders/Prescriptions Prescriptions: New acetaminophen 500 mg Tablet 1,000 mg PO Q6H PRN PRN (Reason: Pain 1-10 Or Fever) Qty: 0 0RF ibuprofen 600 mg Tablet 600 mg PO Q6H PRN PRN (Reason: Pain Score 1-10) Qty: 0 0RF Continued 400 mcg Tablet,Chewable 1 tab PO DAILY Referrals / Follow Up: Care Physician,No Primary [Primary Care Provider, Medical] Disposition Disposition (needs filled in before D/C Order can be placed): Home, Self Care
[2025-03-23 10:00] VITALS: BP 129/68; PULSE 77; RESP 16; TEMP 36.6; TEMP 36.7
== END 2025-03-23 10:10 | disposition home or self-care (01) | DRG 807 ==
LOC: WPOUT 23:29 → WP 23:29
PROVIDERS: Admitting Provider Advanced Practice Midwife; Referring Provider Advanced Practice Midwife; Visit Provider Advanced Practice Midwife
DX: O24.420 Gestational diabetes mellitus in childbirth, diet controlled (principal); Z37.0 Single live birth; O36.63X0 Maternal care for excessive fetal growth, third trimester, not applicable or unspecified; Z3A.38 38 weeks gestation of pregnancy; O70.1 Second degree perineal laceration during delivery
CPT/HCPCS: 82962; 85025; 86780; 86850; 86900; 86901; 99221; G0378